=== PATIENT | male | born 1960 | race Caucasian/White ===

== ENCOUNTER 2018-05-08 10:12 | Emergency (ER) | payer SELFPAY ==
[~2018-05-08] VITALS: Ht 165.1 cm; Wt 53.1 kg
[2018-05-08 10:15] VITALS: BP 162/91
--- NOTE | 2018-05-08 10:18 | NUR ---
PATIENT AMBULATED TO BED 11.
--- NOTE | 2018-05-08 10:35 | NUR ---
BIB SELF. AAOX4. C/O NERVOUSNESS X 1 WEEK. NO N/V/D. DENIES ABDOMINAL PAIN. DENIES SOB. HOB UP, BED RAILS UP X 1. ON LOW BED POSITION, LOCKED. ER MADE AWARE OF PT STATUS.
[2018-05-08] MEDS ORDERED: LANS15EC28 PO (10:37)
[2018-05-08] MEDS ORDERED: PAX10 PO (10:37)
[2018-05-08] MEDS ORDERED: LISI10TA11 PO (10:37)
--- NOTE | 2018-05-08 11:00 | NUR ---
Patient being evaluated by physician at bedside.
[2018-05-08 11:45] VITALS: BP 139/82
--- NOTE | 2018-05-08 11:45 | NUR ---
Patient discharged with v/s stable. Written and verbal after care instructions given and explained. Patient alert, oriented and verbalized understanding of instructions. Ambulatory with steady gait. All questions addressed prior to discharge. ID band removed. Patient advised to follow up with PMD. Rx of Lansoprazole given. Patient educated on indication of medication including possible reaction and side effects. Opportunity to ask questions provided and answered.
== END 2018-05-08 11:45 | disposition home or self-care (01) ==
LOC: MED 10:12
DX: K21.9 Gastro-esophageal reflux disease without esophagitis (principal); I10 Essential (primary) hypertension; F41.9 Anxiety disorder, unspecified; Z88.6 Allergy status to analgesic agent; Z79.899 Other long term (current) drug therapy
CPT/HCPCS: 81002; 93005; 99283